=== PATIENT | female | born 1975 | race Caucasian/White ===

== ENCOUNTER 2017-08-21 10:41 | Emergency (ER) | payer MEDICAID ==
[~2017-08-21] VITALS: Ht 154.9 cm; Wt 45.5 kg
[2017-08-21 10:48] VITALS: Ht 154.9 cm; Wt 45.5 kg
[2017-08-21 15:19] VITALS: BP 98/55
== END 2017-08-21 15:19 | disposition home or self-care (01) ==
LOC: ED 10:41
DX: N73.9 Female pelvic inflammatory disease, unspecified (principal); F17.210 Nicotine dependence, cigarettes, uncomplicated; Z71.6 Tobacco abuse counseling; Z88.1 Allergy status to other antibiotic agents; Z88.6 Allergy status to analgesic agent
CPT/HCPCS: 87491; 87591; 99406; J3490; Q0092; Q0162